=== PATIENT | female | born 1980 | race Caucasian/White ===

== ENCOUNTER 2018-04-28 23:05 | Emergency (ER) | payer MEDICAID ==
[~2018-04-28] VITALS: Ht 172.7 cm; Wt 88.0 kg
[2018-04-28 23:07] VITALS: BP 151/86
[2018-04-28] MEDS ORDERED: ALBUTEROL/IPRATROPIUM 2.5MG/0.5MG, 3 ML NPPB ONE (23:30)
[2018-04-28] MEDS ORDERED: ALBUTEROL/IPRATROPIUM 2.5MG/0.5MG, 3 ML ONE (23:32)
[2018-04-29] MEDS ORDERED: ALBUTEROL/IPRATROPIUM 2.5MG/0.5MG, 3 ML ONE (00:41)
== END 2018-04-29 01:35 | disposition home or self-care (01) ==
LOC: ED 23:43
DX: J12.89 Other viral pneumonia (principal); Z90.49 Acquired absence of other specified parts of digestive tract
CPT/HCPCS: 71046; 93005; 94640; 99283; J7512; J7620; 99284

== ENCOUNTER 2019-09-28 08:37 | Inpatient (IN) | payer MEDICAID ==
[~2019-09-28] VITALS: Ht 172.7 cm; Wt 96.0 kg
--- NOTE | 2019-09-28 09:06 | NUR ---
pt to ed c/o rlq pain wraps to bilat flanks no hematuria +dysuria pt very vocal re: pain, no hx kidney stones, given ua cup, call [facility] in reach, sister at bedside awaiting md. as
[2019-09-28] MEDS ORDERED: ONDANSETRON 2MG/ML, 2ML ONE ×2 (09:18→12:14)
[2019-09-28] MEDS ORDERED: MORPHINE SULFATE 4 MG/ML, 1ML ONE ×2 (09:19→10:04)
[2019-09-28] MEDS ORDERED: ONDANSETRON 2MG/ML, 2ML IVPush ONE (09:30)
[2019-09-28] MEDS ORDERED: SODIUM CHLORIDE FLUSH 10ML SYR IVF ONE (09:30)
[2019-09-28] MEDS: MORPHINE SULFATE 4 MG/ML, 1ML IVPush PRN ×2 (09:32→10:06)
--- NOTE | 2019-09-28 09:33 | NUR ---
STEVIE IN ROOM. PIV EST MEDS PER [facility] SENT PT REFUSING UA.
[2019-09-28 09:45] LABS: BASOPHILS # (AUTO) 0.02 x10^3/uL (0-0.1); BASOPHILS % (AUTO) 0 % (0-1); EOSINOPHILS # (AUTO) 0.05 x10^3/uL (0-0.4); EOSINOPHILS % (AUTO) 1 % (1-7); LYMPHOCYTES # (AUTO) 0.92 x10^3/uL (1-3.4); LYMPHOCYTES % (AUTO) 12 % (22-44); MD NO; MEAN CORPUSCULAR HEMOGLOBIN 30.3 pg (27.0-34.8); MEAN CORPUSCULAR HGB CONC 33.1 g/dL (32.4-35.8); MEAN CORPUSCULAR VOLUME 91.4 fL (80-100); MEAN PLATELET VOLUME 8.5 fL (7.4-10.4); MONOCYTES # (AUTO) 0.16 x10^3/uL (0.2-0.8); MONOCYTES % (AUTO) 2 % (2-9); NEUTROPHILS % (AUTO) 85 % (42-75); PLATELET COUNT 297 x10^3/uL (130-400); RED BLOOD COUNT 4.69 x10^6/uL (3.82-5.3); RED CELL DISTRIBUTION WIDTH 13.1 % (9.6-15.2)
[2019-09-28 09:57] LABS: ALANINE AMINOTRANSFERASE 31 U/L (12-78); ALBUMIN 3.8 g/dL (3.4-5.0); ANION GAP 2 mmol/L (5-15); CALCIUM 9.3 mg/dL (8.5-10.1); CHLORIDE 107 mmol/L (98-107); CREATININE 0.78 mg/dL (0.55-1.02)
[2019-09-28 09:59] LABS: ALKALINE PHOSPHATASE 152 U/L (45-117); BILIRUBIN,TOTAL 0.3 mg/dL (0.2-1.0)
--- NOTE | 2019-09-28 10:08 | NUR ---
CONT TO C/O PAIN, SECOND DOSE MORPHINE PER JUL. CTM. STILL NO UA, REMINDED. CALL [facility].
[2019-09-28 10:32] LABS: MICROSCOPIC INDICATED
[2019-09-28 10:39] LABS: CULTURE INDICATED? YES
--- NOTE | 2019-09-28 11:11 | NUR ---
MEDS PER JUL 2ND PIV EST FLUIDS PER JUL NGT INSERTED. TO GO TO OR. AWARE.
[2019-09-28] MEDS ORDERED: HYDROmorphone 1 MG/ML, 1ML INJ ONE (11:29)
[2019-09-28] MEDS ORDERED: SODIUM CHLORIDE 0.9% 1,000ML IVBOLUS ONE (11:30)
[2019-09-28] MEDS ORDERED: HYDROmorphone 2 MG/ML, 1ML IVPush ONE (11:30)
--- NOTE | 2019-09-28 11:51 | NUR ---
SISTER JORDON: [id number]
[2019-09-28] MEDS ORDERED: ALBU8.5H8 INH (11:54)
--- NOTE | 2019-09-28 11:56 | NUR ---
REPORT TO CLEVELAND ALFARO. NGT DRAINED 300 LIGHT BROWN LIQUID AT THIS TIME.
[2019-09-28] MEDS ORDERED: SODIUM CHLORIDE 0.9%, 500ML IVBOLUS ONE (12:00)
--- NOTE | 2019-09-28 12:05 | NUR ---
REPORT GIVEN TO CYBER INCIDENT ANALYST.
[2019-09-28] MEDS ORDERED: ROCURONIUM 10MG/ML,5ML ONE (12:14)
[2019-09-28] MEDS ORDERED: PROPOFOL 10 MG/ML, 20ML ONE (12:14)
[2019-09-28] MEDS ORDERED: SUCCINYLCHOLINE 20 MG/ML, 10ML ONE (12:14)
[2019-09-28] MEDS ORDERED: MIDAZOLAM 1 MG/ML, 2ML ONE (12:14)
[2019-09-28] MEDS ORDERED: FENTANYL PF 250 MCG/5ML ONE (12:14)
[2019-09-28] MEDS ORDERED: DEXAMETHASONE 4 MG/ML, 1ML ONE (12:14)
[2019-09-28] MEDS ORDERED: BUPIVACAINE/PF-EPI 0.5% 1:200K ONE (12:21)
[2019-09-28] MEDS ORDERED: CHLORHEXIDINE 15 ML UDC ONE (12:21)
[2019-09-28] MEDS ORDERED: ONDANSETRON 2MG/ML, 2ML IVPush PRN (12:30)
[2019-09-28] MEDS ORDERED: OXYcodone 5 MG/5 ML ORAL.SOL UDC PO PRN (12:30)
[2019-09-28] MEDS ORDERED: MEPERIDINE/PF 25MG/0.5ML IVPush PRN (12:30)
[2019-09-28] MEDS ORDERED: MIDAZOLAM 1 MG/ML, 2ML IV PRN (12:30)
[2019-09-28] MEDS ORDERED: ACETAMINOPHEN 325 MG TABLET PO PRN (12:30)
[2019-09-28] MEDS ORDERED: PROMETHAZINE 25 MG/ML, 1ML IVPush PRN (12:30)
[2019-09-28] MEDS ORDERED: FENTANYL PF 100 MCG/2ML IV PRN (12:30)
[2019-09-28] MEDS ORDERED: LABETALOL 5MG/ML, 20ML IV PRN (12:30)
[2019-09-28] MEDS ORDERED: hydrALAzine 20 MG/ML, 1ML IV PRN (12:30)
[2019-09-28] MEDS ORDERED: HYDROmorphone 1 MG/ML, 1ML INJ IVPush PRN (12:30)
[2019-09-28] MEDS ORDERED: CEFOTETAN 2 GM ONE (12:37)
[2019-09-28] MEDS ORDERED: KETOROLAC 30 MG/1 ML ONE (12:51)
[2019-09-28] MEDS ORDERED: FENTANYL PF 100 MCG/2ML ONE (13:29)
[2019-09-28] MEDS ORDERED: OXYcodone 5 MG/5 ML ORAL.SOL UDC ONE (13:29)
[2019-09-28 15:00] VITALS: BP 127/86
[2019-09-28] MEDS ORDERED: ALBUTEROL SULFATE 2.5 MG/3 ML NPPB PRN (15:30)
[2019-09-28] MEDS ORDERED: MORPHINE SULFATE 4 MG/ML, 1ML IV PRN (15:30)
[2019-09-28] MEDS ORDERED: ONDANSETRON 2MG/ML, 2ML IV PRN (15:30)
[2019-09-28] MEDS: LACTATED RINGERS 1,000 ML IV SCH (16:05)
[2019-09-28 18:45] VITALS: BP 145/91
[2019-09-28] MEDS: OXYcodone IR 5MG TABLET PO PRN (23:51)
[2019-09-29 00:18] VITALS: BP 156/94
[2019-09-29 03:52] VITALS: BP 133/83
[2019-09-29] MEDS: LACTATED RINGERS 1,000 ML IV SCH (04:03)
[2019-09-29] MEDS: OXYcodone IR 5MG TABLET PO PRN ×3 (04:29→12:04)
[2019-09-29 06:59] VITALS: BP 133/81
[2019-09-29] MEDS ORDERED: OXYC-302 PO (09:49)
[2019-09-29 12:34] VITALS: BP 120/73
== END 2019-09-29 12:57 | disposition home or self-care (01) | DRG 353 ==
LOC: ED 09:24 → EDIP 11:45 → 4NE 15:08
PROVIDERS: ADMIT Surgery; ATTEND Surgery
PROC: 0WUF0JZ Supplement Abdominal Wall with Synthetic Substitute, Open Approach (ICD-10-PCS; principal; 2019-09-28 12:30)
DX: K43.6 Other and unspecified ventral hernia with obstruction, without gangrene (principal); K56.2 Volvulus; K56.600 Partial intestinal obstruction, unspecified as to cause; F17.200 Nicotine dependence, unspecified, uncomplicated; Z90.49 Acquired absence of other specified parts of digestive tract
CPT/HCPCS: 36415; J3490; 74176; 80053; 81001; 83690; 84703; 85025; 87077; 87086; 87147; 87186; 96374; 96375; 96376; 99285; G0378; J1100; J1170; J1885; J2250; J2405; J2704; J3010; C1781; J0330; J2270; J7030; J7120

== ENCOUNTER 2019-10-20 17:50 | Inpatient (IN) | payer MEDICAID ==
[~2019-10-20] VITALS: Ht 172.7 cm; Wt 91.0 kg
[~2019-10-20 17:50] MED LIST: ALBU8.5H8 INH; OXYC-302 PO
--- NOTE | 2019-10-20 18:20 | NUR ---
HYDRO PLANT SITE MANAGER: PT AMBULATORY TO ROOM FROM LOBBY
[2019-10-20] MEDS ORDERED: ONDANSETRON 2MG/ML, 2ML ONE (18:55)
[2019-10-20] MEDS ORDERED: MORPHINE SULFATE 4 MG/ML, 1ML ONE (18:55)
[2019-10-20] MEDS ORDERED: MORPHINE SULFATE 4 MG/ML, 1ML IVPush PRN (19:00)
[2019-10-20] MEDS ORDERED: SODIUM CHLORIDE FLUSH 10ML SYR IVF ONE (19:00)
[2019-10-20] MEDS ORDERED: ONDANSETRON 2MG/ML, 2ML IVPush ONE (19:00)
[2019-10-20 19:12] LABS: BASOPHILS # (AUTO) 0.03 x10^3/uL (0-0.1); BASOPHILS % (AUTO) 0 % (0-1); EOSINOPHILS # (AUTO) 0.22 x10^3/uL (0-0.4); EOSINOPHILS % (AUTO) 2 % (1-7); LYMPHOCYTES # (AUTO) 0.92 x10^3/uL (1-3.4); LYMPHOCYTES % (AUTO) 7 % (22-44); MD NO; MEAN CORPUSCULAR HEMOGLOBIN 30.1 pg (27.0-34.8); MEAN CORPUSCULAR HGB CONC 33.2 g/dL (32.4-35.8); MEAN CORPUSCULAR VOLUME 90.7 fL (80-100); MEAN PLATELET VOLUME 8.5 fL (7.4-10.4); MONOCYTES # (AUTO) 0.85 x10^3/uL (0.2-0.8); MONOCYTES % (AUTO) 7 % (2-9); NEUTROPHILS # (AUTO) 10.44 x10^3/uL (1.8-6.8); NEUTROPHILS % (AUTO) 84 % (42-75); PLATELET COUNT 255 x10^3/uL (130-400); RED BLOOD COUNT 4.43 x10^6/uL (3.82-5.3); RED CELL DISTRIBUTION WIDTH 12.8 % (9.6-15.2)
[2019-10-20 19:22] LABS: ALANINE AMINOTRANSFERASE 15 U/L (12-78); ANION GAP 7 mmol/L (5-15); CHLORIDE 104 mmol/L (98-107); CREATININE 1.39 mg/dL (0.55-1.02)
[2019-10-20 19:27] LABS: ALKALINE PHOSPHATASE 131 U/L (45-117); BILIRUBIN,TOTAL 0.5 mg/dL (0.2-1.0); TOTAL PROTEIN 7.6 g/dL (6.4-8.2)
--- NOTE | 2019-10-20 19:30 | NUR ---
MULTIPLE ATTEMPTS TO PLACE IV. ATTEMPT WITH US.
--- NOTE | 2019-10-20 20:25 | NUR ---
PT IS UNABLE TO GIVE UA AT THIS TIME. WILL TRY ONCE BACK FROM CT.
[2019-10-20] MEDS ORDERED: OMNIPAQUE 350 MG/ML, 100ML BOTTLE ONE (20:43)
--- NOTE | 2019-10-20 21:10 | NUR ---
1ST CONTACT C PT. AMBULATORY TO RESTROOM C STEADY GAIT. SAMPLE OBTAINED & SENT. VSS. CALL LIGHT INREACH. AWARE OF PENDING LABS & CT. DENIES ANY NEEDS. WILL CTM.
[2019-10-20 21:18] LABS: MICROSCOPIC AUTO
[2019-10-20] MEDS ORDERED: VANCOMYCIN 1,800 MG in SODIUM CHLORIDE 0.9% 250 ML IV ONE (22:00)
[2019-10-20] MEDS ORDERED: VANCOMYCIN PER PHARMACY MC PRN ×2 (22:00→22:30)
[2019-10-20] MEDS ORDERED: AMPICILLIN/SULBACTAM 3 GM in SODIUM CHLORIDE 0.9% 100 ML IV ONE (22:00)
[2019-10-20] MEDS ORDERED: PHARMACOKINETIC CONSULTATION MC ONE (22:00)
[2019-10-20] MEDS ORDERED: POLYETHYLENE GLYCOL 17 GM PACKET PO PRN (22:30)
[2019-10-20] MEDS ORDERED: hydrALAzine 20 MG/ML, 1ML IVPush PRN (22:30)
[2019-10-20] MEDS ORDERED: ACETAMINOPHEN 325 MG TABLET PO PRN (22:30)
[2019-10-20] MEDS ORDERED: PHARMACY MAY ADJ FOR RENAL FX MC PRN (22:30)
[2019-10-20] MEDS ORDERED: ONDANSETRON 2MG/ML, 2ML IVPush PRN (22:30)
[2019-10-20] MEDS ORDERED: TRAZODONE 50MG TABLET PO PRN (22:30)
[2019-10-20 23:00] VITALS: BP 121/73
[2019-10-20] MEDS: PIPERACILLIN/TAZO/PMX 3.375GM 50 ML IV SCH (23:00)
[2019-10-20] MEDS ORDERED: PHARMACOKINETIC MONITORING MC PRN (23:30)
[2019-10-20] MEDS: NICOTINE 14MG/24 HR PATCH.TD24 TD SCH (23:42)
[2019-10-20] MEDS: HYDROcodone/APAP 5/325 TABLET PO PRN (23:42)
[2019-10-21] MEDS: HYDROcodone/APAP 5/325 TABLET PO PRN ×2 (00:08→20:30)
[2019-10-21 01:04] VITALS: BP 111/70
[2019-10-21] MEDS: LACTATED RINGERS 1,000 ML IV SCH ×2 (02:50→16:21)
[2019-10-21] MEDS: PIPERACILLIN/TAZO/PMX 3.375GM 50 ML IV SCH ×3 (05:03→21:33)
[2019-10-21] MEDS: ALBUTEROL SULFATE 2.5 MG/3 ML NPPB SCH ×4 (07:00→20:15)
[2019-10-21 07:21] VITALS: BP 107/70
[2019-10-21] MEDS: morphine SULFATE 10 MG/ML, 1ML IVPush PRN ×2 (07:32→13:28)
[2019-10-21 07:39] LABS: BASOPHILS # (AUTO) 0.01 x10^3/uL (0-0.1); BASOPHILS % (AUTO) 0 % (0-1); EOSINOPHILS # (AUTO) 0.47 x10^3/uL (0-0.4); EOSINOPHILS % (AUTO) 5 % (1-7); LYMPHOCYTES % (AUTO) 10 % (22-44); MD NO; MEAN CORPUSCULAR HEMOGLOBIN 30.3 pg (27.0-34.8); MEAN CORPUSCULAR HGB CONC 32.8 g/dL (32.4-35.8); MEAN CORPUSCULAR VOLUME 92.3 fL (80-100); MEAN PLATELET VOLUME 8.3 fL (7.4-10.4); MONOCYTES # (AUTO) 0.62 x10^3/uL (0.2-0.8); MONOCYTES % (AUTO) 7 % (2-9); NEUTROPHILS # (AUTO) 7.19 x10^3/uL (1.8-6.8); NEUTROPHILS % (AUTO) 78 % (42-75); PLATELET COUNT 251 x10^3/uL (130-400); RED BLOOD COUNT 4.25 x10^6/uL (3.82-5.3); RED CELL DISTRIBUTION WIDTH 12.8 % (9.6-15.2)
[2019-10-21 07:46] LABS: ANION GAP 6 mmol/L (5-15); CALCIUM 8.7 mg/dL (8.5-10.1); CHLORIDE 106 mmol/L (98-107); CREATININE 0.83 mg/dL (0.55-1.02)
[2019-10-21] MEDS: VANCOMYCIN 1,700 MG in SODIUM CHLORIDE 0.9% 250 ML IV ONE (10:00)
[2019-10-21] MEDS ORDERED: BACITRACIN OINT 500U/GM, 15 GM ONE (12:14)
[2019-10-21] MEDS ORDERED: BACITRACIN 50,000 UNIT ONE (12:14)
[2019-10-21] MEDS ORDERED: CHLORHEXIDINE 15 ML UDC ONE (12:19)
[2019-10-21] MEDS ORDERED: CHLORHEXIDINE 15 ML UDC MM ONE (12:30)
[2019-10-21] MEDS ORDERED: FENTANYL PF 100 MCG/2ML ONE (12:39)
[2019-10-21] MEDS ORDERED: MIDAZOLAM 1 MG/ML, 2ML ONE (12:39)
[2019-10-21] MEDS ORDERED: SUCCINYLCHOLINE 20 MG/ML, 10ML ONE (12:47)
[2019-10-21] MEDS ORDERED: GLYCOPYRROLATE 0.4 MG/2 ML, 2ML ONE (12:47)
[2019-10-21] MEDS ORDERED: DEXAMETHASONE 4 MG/ML, 1ML ONE (12:47)
[2019-10-21] MEDS ORDERED: PHENYLEPHRINE 10 MG/ML ONE (12:47)
[2019-10-21] MEDS ORDERED: ROCURONIUM 10 MG/ML,10ML ONE (12:47)
[2019-10-21] MEDS ORDERED: NEOSTIGMINE 1 MG/ML, 10ML ONE (12:47)
[2019-10-21] MEDS ORDERED: PROPOFOL 10 MG/ML, 100ML IV ONE (12:47)
[2019-10-21] MEDS ORDERED: MORPHINE SULFATE 4 MG/ML, 1ML ONE (13:26)
[2019-10-21] MEDS ORDERED: KETOROLAC 30 MG/1 ML IVPush PRN (13:30)
[2019-10-21] MEDS ORDERED: PROMETHAZINE 25 MG/ML, 1ML IVPush PRN (13:30)
[2019-10-21] MEDS ORDERED: FENTANYL PF 100 MCG/2ML IV PRN (13:30)
[2019-10-21] MEDS ORDERED: HYDROcodone/APAP 7.5-325MG/15ML UDC PO PRN (13:30)
[2019-10-21] MEDS ORDERED: MEPERIDINE/PF 25MG/0.5ML IVPush PRN (13:30)
[2019-10-21] MEDS ORDERED: HYDROcodone/APAP 7.5-325MG/15ML UDC ONE (13:38)
[2019-10-21] MEDS ORDERED: HYDROmorphone 1 MG/ML, 1ML INJ ONE (13:38)
[2019-10-21] MEDS: HYDROmorphone 1 MG/ML, 1ML INJ IVPush PRN ×2 (13:42→13:51)
[2019-10-21] MEDS: MORPHINE SULFATE 4 MG/ML, 1ML IVPush PRN (16:27)
[2019-10-21 19:46] VITALS: BP 121/75
[2019-10-21] MEDS: NICOTINE 14MG/24 HR PATCH.TD24 TD SCH (21:52)
[2019-10-21 23:47] VITALS: BP 116/71
[2019-10-22] MEDS: HYDROcodone/APAP 5/325 TABLET PO PRN ×6 (00:29→21:53)
[2019-10-22] MEDS: LACTATED RINGERS 1,000 ML IV SCH (02:00)
[2019-10-22 04:14] VITALS: BP 101/60
[2019-10-22] MEDS: PIPERACILLIN/TAZO/PMX 3.375GM 50 ML IV SCH ×4 (04:18→21:47)
[2019-10-22] MEDS: MORPHINE SULFATE 4 MG/ML, 1ML IVPush PRN ×2 (04:18→10:54)
[2019-10-22 06:55] VITALS: BP 94/54
[2019-10-22] MEDS: ALBUTEROL SULFATE 2.5 MG/3 ML NPPB SCH ×4 (07:11→19:32)
[2019-10-22 12:36] VITALS: BP 97/60
[2019-10-22] MEDS: VANCOMYCIN 1,700 MG in SODIUM CHLORIDE 0.9% 250 ML IV SCH (17:46)
[2019-10-22 19:08] VITALS: BP 116/66
[2019-10-22] MEDS: NICOTINE 14MG/24 HR PATCH.TD24 TD SCH (21:53)
[2019-10-23 00:58] VITALS: BP 100/52
[2019-10-23] MEDS: LACTATED RINGERS 1,000 ML IV SCH ×2 (03:00→12:10)
[2019-10-23] MEDS: PIPERACILLIN/TAZO/PMX 3.375GM 50 ML IV SCH ×4 (04:04→21:59)
[2019-10-23] MEDS: HYDROcodone/APAP 5/325 TABLET PO PRN ×5 (04:07→21:59)
[2019-10-23] MEDS: VANCOMYCIN 1,700 MG in SODIUM CHLORIDE 0.9% 250 ML IV SCH ×2 (04:52→17:30)
[2019-10-23 05:06] LABS: CREATININE 0.65 mg/dL (0.55-1.02)
[2019-10-23] MEDS: ALBUTEROL SULFATE 2.5 MG/3 ML NPPB SCH ×4 (06:48→19:16)
[2019-10-23 07:10] VITALS: BP 122/76
[2019-10-23 13:41] VITALS: BP 129/81
[2019-10-23 19:35] VITALS: BP 128/82
[2019-10-23] MEDS: NICOTINE 14MG/24 HR PATCH.TD24 TD SCH (21:59)
[2019-10-24 01:10] VITALS: BP 122/73
[2019-10-24] MEDS: OXYcodone/APAP 5/325MG TABLET PO PRN ×3 (02:37→15:31)
[2019-10-24] MEDS: LACTATED RINGERS 1,000 ML IV SCH (02:37)
[2019-10-24] MEDS: PIPERACILLIN/TAZO/PMX 3.375GM 50 ML IV SCH ×4 (04:01→15:47)
[2019-10-24] MEDS: VANCOMYCIN 1,700 MG in SODIUM CHLORIDE 0.9% 250 ML IV SCH (05:12)
[2019-10-24] MEDS: ALBUTEROL SULFATE 2.5 MG/3 ML NPPB SCH ×3 (06:50→15:23)
[2019-10-24 07:55] VITALS: BP 129/75
[2019-10-24] MEDS: MORPHINE SULFATE 4 MG/ML, 1ML IVPush PRN (11:05)
[2019-10-24 12:24] VITALS: BP 149/87
[2019-10-24] MEDS ORDERED: LINE600T12 PO (16:14)
[2019-10-24] MEDS ORDERED: LACT1CAP35 PO (16:15)
== END 2019-10-24 16:45 | disposition home or self-care (01) | DRG 907 ==
LOC: ED 22:40 → 4NE 22:57 → ED 23:06
PROVIDERS: ADMIT Family Medicine; ATTEND Family Medicine
PROC: 0W9F0ZZ Drainage of Abdominal Wall, Open Approach (ICD-10-PCS; principal; 2019-10-21 12:30)
DX: T85.79XA Infection and inflammatory reaction due to other internal prosthetic devices, implants and grafts, initial encounter (principal); N17.0 Acute kidney failure with tubular necrosis; A41.9 Sepsis, unspecified organism; K43.6 Other and unspecified ventral hernia with obstruction, without gangrene; L02.211 Cutaneous abscess of abdominal wall; Y83.8 Other surgical procedures as the cause of abnormal reaction of the patient, or of later complication, without mention of misadventure at the time of the procedure; K59.03 Drug induced constipation; J45.909 Unspecified asthma, uncomplicated; G43.909 Migraine, unspecified, not intractable, without status migrainosus; F17.210 Nicotine dependence, cigarettes, uncomplicated; N30.91 Cystitis, unspecified with hematuria; T40.605A Adverse effect of unspecified narcotics, initial encounter; Y92.89 Other specified places as the place of occurrence of the external cause; Z79.899 Other long term (current) drug therapy; Z90.49 Acquired absence of other specified parts of digestive tract; Z87.01 Personal history of pneumonia (recurrent)
CPT/HCPCS: 36415; 84145; 96374; 96375; 99285; J7613; 74177; 80048; 80053; 80202; 81001; 82565; 83605; 83690; 84703; 85025; 87015; 87040; 87070; 87075; 87077; 87086; 87102; 87116; 87147; 87186; 87205; 87206; 94640; G0378; J0295; J1100; J1170; J2250; J2405; J2543; J2704; J2710; J3010; J3370; Q9967; J0330; J2270; J2370; J7050; J7120

== ENCOUNTER 2019-10-29 14:44 | Outpatient (CLI) | payer MEDICAID ==
[~2019-10-29 14:44] MED LIST changes: +LACT1CAP35 PO; +LINE600T12 PO
== END 2019-10-29 23:59 | disposition home or self-care (01) ==
LOC: WOUND 14:44
PROVIDERS: ATTEND Internal Medicine
DX: T81.32XA Disruption of internal operation (surgical) wound, not elsewhere classified, initial encounter (principal); S31.122A Laceration of abdominal wall with foreign body, epigastric region without penetration into peritoneal cavity, initial encounter; L02.211 Cutaneous abscess of abdominal wall; G43.909 Migraine, unspecified, not intractable, without status migrainosus; J45.909 Unspecified asthma, uncomplicated; F41.9 Anxiety disorder, unspecified; F17.210 Nicotine dependence, cigarettes, uncomplicated; Z79.899 Other long term (current) drug therapy; Z90.49 Acquired absence of other specified parts of digestive tract; Z87.01 Personal history of pneumonia (recurrent); Z96.652 Presence of left artificial knee joint; X58.XXXA Exposure to other specified factors, initial encounter; Y93.89 Activity, other specified; Y92.89 Other specified places as the place of occurrence of the external cause; Y99.8 Other external cause status; Y83.8 Other surgical procedures as the cause of abnormal reaction of the patient, or of later complication, without mention of misadventure at the time of the procedure; Y92.238 Other place in hospital as the place of occurrence of the external cause
CPT/HCPCS: 97597; 97598; 99204; 99214

== ENCOUNTER 2019-10-31 13:07 | Outpatient (CLI) | payer MEDICAID | END 2019-10-31 23:59 | disposition home or self-care (01) | LOC: WOUND 13:07 | PROVIDERS: ATTEND Family Medicine | DX: T81.32XD Disruption of internal operation (surgical) wound, not elsewhere classified, subsequent encounter (principal); S31.12 Laceration with foreign body of abdominal wall without penetration into peritoneal cavity; G43.909 Migraine, unspecified, not intractable, without status migrainosus; J45.909 Unspecified asthma, uncomplicated; F17.210 Nicotine dependence, cigarettes, uncomplicated; Z79.899 Other long term (current) drug therapy; Z90.49 Acquired absence of other specified parts of digestive tract; Z87.01 Personal history of pneumonia (recurrent); Z87.898 Personal history of other specified conditions; Y83.8 Other surgical procedures as the cause of abnormal reaction of the patient, or of later complication, without mention of misadventure at the time of the procedure; X58.XXXD Exposure to other specified factors, subsequent encounter | CPT/HCPCS: 97605 ==

== ENCOUNTER → 2019-11-03 | Outpatient (CLI) | payer MEDICAID | END | disposition home or self-care (01) | LOC: WOUND 14:33 | PROVIDERS: ATTEND Internal Medicine | DX: T81.32XD Disruption of internal operation (surgical) wound, not elsewhere classified, subsequent encounter (principal); G43.909 Migraine, unspecified, not intractable, without status migrainosus; J45.909 Unspecified asthma, uncomplicated; F17.210 Nicotine dependence, cigarettes, uncomplicated; Z79.899 Other long term (current) drug therapy; Z90.49 Acquired absence of other specified parts of digestive tract; Z87.01 Personal history of pneumonia (recurrent); Z87.898 Personal history of other specified conditions; Y83.8 Other surgical procedures as the cause of abnormal reaction of the patient, or of later complication, without mention of misadventure at the time of the procedure | CPT/HCPCS: 97605 ==

== ENCOUNTER → 2019-11-05 | Outpatient (CLI) | payer MEDICAID | END | disposition home or self-care (01) | LOC: WOUND 13:07 | PROVIDERS: ATTEND Internal Medicine | DX: T81.32XD Disruption of internal operation (surgical) wound, not elsewhere classified, subsequent encounter (principal); L02.211 Cutaneous abscess of abdominal wall; G43.909 Migraine, unspecified, not intractable, without status migrainosus; J45.909 Unspecified asthma, uncomplicated; F17.210 Nicotine dependence, cigarettes, uncomplicated; Z79.899 Other long term (current) drug therapy; Z90.49 Acquired absence of other specified parts of digestive tract; Z87.01 Personal history of pneumonia (recurrent); Z87.898 Personal history of other specified conditions; Z96.652 Presence of left artificial knee joint; Y83.8 Other surgical procedures as the cause of abnormal reaction of the patient, or of later complication, without mention of misadventure at the time of the procedure | CPT/HCPCS: 97597 ==